=== PATIENT | male | born 1995 | race Caucasian/White ===

== ENCOUNTER 2017-01-30 00:05 | Emergency (ER) | payer OTHER, MEDICARE ==
[2017-01-30] MEDS ORDERED: ACETAMINOPHEN 500 MG TABLET PO ONE (00:19)
--- NOTE | 2017-01-30 00:35 | ERNOTE ---
Chest Pain/Cardiac HPI Date of Service: 01/30/17 Chief Complaint: Chest Pain Time Seen by Provider: 01/30/17 00:14 Source: patient Exam Limitations: no limitations Immunizations: IMMUNIZATION HX Immunizations Up to Date Yes History of Influenza Vaccine No Hx Pneumococcal Vaccination No Allergies/Adverse Reactions: Allergies No Known Allergies Allergy (Verified 11/17/15 02:22) Home Medications: HOME MEDICATIONS metFORMIN HCL [Glucophage] 1,000 mg PO BIDWM 09/22/14 [Last Taken 01/29/17 22:00 ] Paliperidone Palmitate [Invega Sustenna] 156 mg IM Q90D 08/01/15 [Last Taken Unknown] Lisinopril [Zestril] 10 mg PO DAILY 09/24/15 [Last Taken Unknown] Desmopressin Acetate [Ddavp] 0.1 mg PO 01/30/17 [Last Taken 01/29/17 22:00] Fluticasone Propionate 01/30/17 [Last Taken Unknown] Ibuprofen [Motrin] 800 mg PO 01/30/17 [Last Taken 01/29/17 22:40] Insulin Regular Human Rec [Novolin R] 5 unit SQ 01/30/17 [Last Taken 01/29/17 21 :30] Insulin Regular, Human [Novolin R] 10 unit SQ 01/30/17 [Last Taken 01/29/17 20: 30] Naproxen [Naprosyn] 500 mg PO BID PRN #30 tablet 01/30/17 [Last Taken Unknown] Paliperidone [Invega] 9 mg PO 01/30/17 [Last Taken 01/29/17 20:00] sitaGLIPtin PHOSPHATE [Januvia] 100 mg PO 01/30/17 [Last Taken Unknown] Narrative: 21 year old that has been having "severe" chest pain (said with a smile), and is a prisoner at the long-term. He is confused as to when the pain started, either yesterday or today. No complaint of fevers, chills, diaphoresis, or shortness of breath. Lying on his back increases the pain. One of the nurses overheard the prisoner state that he was in the ED because long-term was boring. No previous history of heart disease, however does have DM. Has not been getting his usual medications for the last three day. Date (Duration): 01/30/17 Time (Timing): 00:30 Timing: constant Severity/Quality: severe Location: substernal Chest Pain Radiation: no radiation Activities at Onset: rest Modifying Factors - Improves: Present: nothing Modifying Factors - Worsens: Present: nothing Nitro Today/Relief: no nitro taken today Aspirin Treatment Today: no aspirin today Associated Symptoms: Present: denies symptoms Prior Chest Pain/Cardiac Workup: Reports: no prior cardiac workup Review of Systems - Review of Systems Constitutional: Present: no symptoms reported EYE: Present: no symptoms reported ENT: Present: no symptoms reported Respiratory: Present: no symptoms reported Cardiology: Present: no symptoms reported Gastrointestinal/Abdominal: Present: no symptoms reported Genitourinary: Present: no symptoms reported Musculoskeletal: Present: no symptoms reported Skin: Present: no symptoms reported Neurological: Present: no symptoms reported Endocrine: Present: other - Problems controlling blood glucose. Hematologic/Lymphatic: Present: no symptoms reported Psych: Present: no symptoms reported - Patient's Past Medical History Patient History - Medical: Anxiety, Diabetes Type 2 Insulin Dependent, Depression, Obesity, Other Patient History - Cardiac/Respiratory: No pertinent hx Patient History - Cancer: No Hx of Cancer Patient History - Surgical Procedures: No surgical history Patient History - Other: None - Family History Mother Family History - Cardiac/Respiratory: Hypertension Father Family History - Medical: Family History - Cardiac/Respiratory: CHF, Hypertension, Myocardial Infarction - Social History Abuse History: No History of abuse Psych History: Hx of Anxiety, Hx of Depression - Immunizations Immunizations Up to Date: Yes Hx Pneumococcal Vaccination: No History of Influenza Vaccine: No Physical Exam - Physical Exam Narrative: Appears quire relaxed, smiles at times. General Appearance: Present: no apparent distress Head Exam: Present: normal inspection Eye Exam: Normal inspection: bilateral Ears, Nose, Throat: Present: normal ENT inspection Neck: Present: normal inspection Respiratory: Present: no respiratory distress Cardiovascular/Chest: Present: regular rate, rhythm, chest tenderness - on compression the pain pattern was recreated exactly. Gastrointestinal/Abdominal: Present: nontender, nondistended Back Exam: Present: normal inspection Extremity Exam: Present: normal inspection Neurological Exam: Present: alert, oriented, normal mood/affect Skin Exam: Present: normal color ED Progress - Results and Orders Patient's Lab Results:: I have reviewed the patient's lab results. - Vital Signs Patient's Vital Signs:: I have reviewed the patient's vital signs. - EKG EKG: NSR EKG read: Interp. by me EKG Comments: rate 93, normal axis, ischemic changes in III and AVF. - X-Ray X-Ray #1 X-Ray: chest Interpretation: Interp. by me - Progress/Reassessment Progress:: Improved Progress Note-Subjective: 01/30/17 01:11 Chest pain has continued to improve after Tylenol administration. Has been hemodynamically stable during the ED stay. Departure Clinical Impression: Atypical chest pain - Departure Disposition: Senior Living Condition: Good Instructions: Chest Wall Pain, [id number] Print Language: Latvian Additional Instructions: You can take Motrin and/or Tylenol to control the pain. The pain that you had was due to the chest wall and not the heart. Prescriptions: Naproxen [Naprosyn] 500 mg PO BID PRN #30 tablet PRN Reason: Pain
[2017-01-30 01:25] VITALS: BP 148/69
== END 2017-01-30 01:24 ==
LOC: ER 00:05
DX: R07.89 Other chest pain (principal)